=== PATIENT | female | born 1980 | race Caucasian/White ===

== ENCOUNTER → 2021-12-13 09:27 | Outpatient (CLI) | payer BC, SELFPAY | PROVIDERS: PCP Family Medicine; Visit Provider Surgery | DX: Z01.812 Encounter for preprocedural laboratory examination (principal); Z20.822 Contact with and (suspected) exposure to COVID-19; D17.24 Benign lipomatous neoplasm of skin and subcutaneous tissue of left leg | CPT/HCPCS: C9803; U0003; U0005 ==

== ENCOUNTER 2021-12-15 08:22 | Day surgery (SDC) | payer BC, SELFPAY ==
[2021-12-11 14:16] VITALS: BMI 26.5
[2021-12-15] VITALS (8 sets, daily range): BP systolic 115–130; BP diastolic 60–83; PULSE 76–103; RESP 17–22; TEMP 36.1–36.4; O2SAT 90–99
[2021-12-15 08:55] LABS: Basophils # 0.2 K/mm3 (0-0.2); Basophils % 1.6 % (0.1-2.0); Eosinophils # 0.3 K/mm3 (0.0-0.4); Hematocrit 39.9 % (37.0-47.0); Hemoglobin 13.9 g/dL (12.2-16.2); Lymphocytes # 2.2 K/mm3 (0.7-4.5); Lymphocytes % 24.5 % (10-50); Mean Corpuscular HGB Conc 34.8 g/dL (31.8-35.4); Mean Corpuscular Hemoglobin 33.7 pg (27.0-31.2); Mean Corpuscular Volume 96.9 fl (81-99); Mean Platelet Volume 8.5 fl (7.4-10.4); Monocytes # 0.4 K/mm3 (0.1-1.0); Monocytes % 4.1 % (1.7-9.3); Neutrophils # 6.1 K/mm3 (1.8-7.8); Neutrophils % 66.8 % (37.0-80.0); Platelet Count 258 K/mm3 (142-424); Red Blood Count 4.12 M/mm3 (4.20-5.40); Red Cell Distribution Width 13.5 % (11.5-17.5); White Blood Count 9.1 K/mm3 (4.8-10.8)
[2021-12-15 08:57] LABS: Urine Pregnancy, HCG Qual. Negative (Negative)
--- NOTE | 2021-12-15 09:01 | EXP.ANES.CKL ---
PF[facility] PFS Surgical History History of section Hx of wisdom tooth extraction Family History Other No significant family history Social History Smoking Status: Current every day smoker alcohol intake: current substance use type: denies use current occupational status: employed Travel in the last 8 weeks: None [facility] Anesthesia Checklist Patient Identification Patient Identification: Arm Band Structural Data Admitted From: Home Planned Operative Procedure/s: Excision of Bilateral Lower Extremity Lipomas Consent for Planned Operative Procedure(s) Verified: Yes Verified Documents: Surgical Consent and History and Physical NPO Status Verified Time NPO: 00:00 Additional verifications Anesthesia Reactions: No Hx Blood Transfusions: No Blood Transfusion Reaction: No Airway Assessment C-Spine Mobility Assessed: Yes TMJ Mobility Assessed: Yes Dentition: Good Dentition Neurological Assessment Level of Consciousness: Awake and Alert Anesthesia Plan Anesthesia Risk discussed: Yes Anesthesia Plan: Verified ASA Class: II Anesthesia Type: General
[2021-12-15 09:14] LABS: Anion Gap 8.6 mEq/L (5-15); Blood Urea Nitrogen 10 mg/dl (7-17); Calcium 8.8 mg/dl (8.4-10.2); Carbon Dioxide 26 mmol/L (22.0-30.0); Chloride 105 mmol/L (98-107); Creatinine Clearance Estimated 135 mL/min (50-200); Estimated Glomerular Filt Rate 111 ml/min (>60); GFR (African American) 135 ML/MIN (>60); Glucose 87 mg/dl (74-100); Potassium 3.6 mmoL/L (3.5-5.1); Sodium 136 mmol/L (136-145)
--- NOTE | 2021-12-15 11:01 | EXP.OP.NOTE ---
Date of procedure: 12/15/21 Pre-op Diagnosis:: Bilateral lower extremity lipomas Post-op Diagnosis:: Same Procedure performed:: Excision of lipoma from left lower extremity, excisional length 3 cm, with intermediate complexity closure Excision of lipoma from right lower extremity, excisional length 2 cm, with intermediate complexity closure. Surgeon:: Vu Aparicio MD APPLICATION ADMINISTRATOR:: Other Anesthesia: LMA Estimated blood loss (mL): 5 Clinical Note:: Patient is a 41-year-old referred by Dr. Obi Paul for lipomas on her legs. She states that she has had a lipoma present on the left anterior thigh for likely greater than 20 years. However it had increased in size. Has become more bothersome over the years. It seems to be worse when she is exercising such as doing squats. She also has a lesion on the right lateral thigh area which is symptomatic as well. She does have several other lipomas she states on her body but these are asymptomatic. She says that her father had numerous lipomas. She was found to have findings consistent with a 3 to 4 cm palpable lesion on the anterior left thigh consistent with lipoma and smaller lesion on the lateral right thigh. Given the duration of these lesions as well as the clinical scenario this is mostly consistent with a benign lipoma.? I did explain her that there is a possibility, albeit rare, but this could be more atypical concerning neoplasm.? But given the clinical history, long duration, and appearance on examination I feel it may be reasonable to proceed with surgical excision, particularly given her symptomatology.? I offered this to her.? She would like to proceed.? Plan will be excision of bilateral lower extremity lipomas.? I explained her the nature and details of the proposed procedure along with the associated risks and expected outcome.? She understands and agrees to proceed. Operative findings:: Consistent with lipomas Operative note:: Patient was taken the operating room. She was positioned in supine position. General anesthesia was induced via LMA. The areas were prepped and draped in the standard surgical fashion. Attention was first turned to the right thigh lesion. This was marked with a skin marker for planned incision. Transverse incision was made approximately 3 cm in length. Dissection was carried down to the lipoma. This was able to be dissected free using mostly blunt digital dissection from surrounding tissue. It was a firm lobulated mature adipose tissue consistent with lipoma. It was excised in its entirety. Local anesthetic was infiltrated. There was good hemostasis. Subdermal tissues were closed with interrupted 3-0 Vicryl. Skin was closed with 4-0 Monocryl in a subcuticular fashion. At this time attention was turned to the right lateral thigh lesion. In similar fashion this was marked with a skin marker. Incision was made. Dissection was carried down to the dermis and superficial subcutaneous tissues to the lipomatous lesion. Once again this was a lobulated lesion of mature adipose tissue consistent with lipoma. I was able to be mostly bluntly dissected free in its entirety from surrounding normal subcutaneous tissue. Local anesthetic was infiltrated. Subdermal tissues closed with interrupted 3-0 Vicryl. Skin was closed with 4-0 Monocryl subcuticular fashion. Dermabond and dressings were applied to both incisions. Condition: stable Disposition: PACU Complications:: None immediately apparent.
--- NOTE | 2021-12-15 11:20 | PC.NURSE ---
[id number] Espinal and administered albuterol inhaler to patient as patient takes at home on as needed basis, pt noted to be coughing very loose/hacky/non-productive, denies soa, reports hx smoking, sats improving on room air after adminstration of inhaler, vss, will continue to monitor
--- NOTE | 2021-12-15 11:29 | P.PNANES_ITS ---
[facility] Anesthesia Record Part I Anesthesia Record I Intake, IV Amount: 800 Estimated blood loss (mL): 5 Urine output (mL): 0 Blood Products used (#): none Blood Pressure: 130/66 SaO2: 97 Pulse Rate: 103 Respiratory Rate: 22 Temperature: 97 F Patient is:: Drowsy and Stable Stable to PACU at:: 11:05
--- NOTE | 2021-12-15 11:38 | PC.NURSE ---
1132-detailed report called to SHEYLA Griffin 1135-pt transported to post op via stretcher w/madhu rails up and left in care of SHEYLA Griffin with bed locked in lowest position, vss, pt stable
--- NOTE | 2021-12-16 08:03 | P.PNANES_ITS ---
[facility] Anesthesia Record Part II Anesthesia Record Part II Discharge Time: 11:35 Destination: Surgical Day Care (OP Surgery) PACU nurse assessment reviewed?: Yes Patient Condition:: Good Anesthesia Complications:: None Swallowing reflex intact?: Yes Cyanosis?: No Blood Pressure: 121/83 Pulse Rate: 79 Temperature: 97.6 F Mental Status: Alert & Oriented Pain level:: 0 Nausea and/or vomitting:: None Intake, IV Amount: 0
[2021-12-16 08:04] VITALS: BP 121/83; PULSE 79; TEMP 36.4
== END 2021-12-15 12:09 | disposition home or self-care (01) ==
PROVIDERS: PCP Family Medicine; Visit Provider Surgery
PROC: (CPT 11403; principal; 2021-12-15 10:00)
DX: D17.24 Benign lipomatous neoplasm of skin and subcutaneous tissue of left leg (principal); D17.23 Benign lipomatous neoplasm of skin and subcutaneous tissue of right leg; Z72.0 Tobacco use; Z79.899 Other long term (current) drug therapy
CPT/HCPCS: 11403; 12032; 11402; 80048; 81025; 85025; 96374; J2405

== ENCOUNTER 2023-06-14 13:24 | Outpatient (CLI) | payer OTHER, SELFPAY ==
--- NOTE | 2023-06-14 13:28 | MM_ITS ---
PROCEDURE INFORMATION: Exam: Bilateral Screening 3D Mammography Exam date and time: 06/14/2023 1:17 PM Age: 42 years old Clinical indication: Screening examination TECHNIQUE: Imaging protocol: Bilateral Screening tomosynthesis and 2D mammography including computer-aided detection (CAD) when performed. COMPARISON: No relevant prior studies available. FINDINGS: MAMMOGRAPHY: Breast composition: The breasts are extremely dense, which lowers the sensitivity of mammography. Mass: None. Architectural distortion: None. Calcifications: No suspicious calcifications. Asymmetric density: None. Skin thickening: None. Axillary adenopathy: None. IMPRESSION: No mammographic evidence of malignancy. Annual screening is recommended unless otherwise clinically indicated. ASSESSMENT: BI-RADS Category 1: Negative
== END 2023-06-14 23:59 | disposition home or self-care (01) ==
LOC: RAD 13:25
PROVIDERS: PCP Obstetrics & Gynecology Gynecology; Visit Provider Obstetrics & Gynecology Gynecology
DX: Z12.31 Encounter for screening mammogram for malignant neoplasm of breast (principal)
CPT/HCPCS: 77063; 77067